=== PATIENT | male | born 1975 | race Caucasian/White ===

== ENCOUNTER 2025-02-02 08:02 | Observation (INO) ==
--- NOTE | 2025-01-02 15:48 | PAT Medication Instructions ---
Medication Instructions Date of Service January 02, 2025 Home Medications Medication Instructions Recorded baclofen 10 mg tablet 10 mg PO TID PRN muscle spasm #30 10/16/24 tabs alprazolam 0.5 mg tablet (Xanax) 0.5 mg PO UD PRN Anxiety calcium carbonate (Tums) 0 mg PO UD PRN Acid Reflux cetirizine 10 mg tablet (Zyrtec) 10 mg PO UD PRN SEASONAL ALLERGIES fluticasone propionate 50 mcg/actuation nasal spray,suspension (Flonase Allergy Relief) 1 spray intranasal UD PRN SEASONAL ALLERGIES acetaminophen 500 mg tablet (Tylenol Extra Strength) 1,000 mg PO UD PRN Pain baclofen 10 mg tablet 10 mg PO TID PRN muscle spasm ibuprofen 200 mg capsule 600 mg PO UD PRN Pain methocarbamol 500 mg tablet 0 mg PO UD PRN muscle spasms ASK your surgeon for instructions ibuprofen 200 mg capsule 600 mg PO UD PRN Pain DO NOT take the morning of surgery calcium carbonate (Tums) 0 mg PO UD PRN Acid Reflux cetirizine 10 mg tablet (Zyrtec) 10 mg PO UD PRN SEASONAL ALLERGIES Take morning of surgery With a small sip of water, OTHERWISE NOTHING TO EAT OR DRINK AFTER MIDNIGHT: alprazolam 0.5 mg tablet (Xanax) 0.5 mg PO UD PRN Anxiety (if needed) fluticasone propionate 50 mcg/actuation nasal spray,suspension (Flonase Allergy Relief) 1 spray intranasal UD PRN SEASONAL ALLERGIES (if needed) acetaminophen 500 mg tablet (Tylenol Extra Strength) 1,000 mg PO UD PRN Pain (if needed) baclofen 10 mg tablet 10 mg PO TID PRN muscle spasm (if needed) methocarbamol 500 mg tablet 0 mg PO UD PRN muscle spasms (if needed) Take evening before surgery alprazolam 0.5 mg tablet (Xanax) 0.5 mg PO UD PRN Anxiety (if needed) calcium carbonate (Tums) 0 mg PO UD PRN Acid Reflux (if needed) cetirizine 10 mg tablet (Zyrtec) 10 mg PO UD PRN SEASONAL ALLERGIES (if needed) fluticasone propionate 50 mcg/actuation nasal spray,suspension (Flonase Allergy Relief) 1 spray intranasal UD PRN SEASONAL ALLERGIES (if needed) acetaminophen 500 mg tablet (Tylenol Extra Strength) 1,000 mg PO UD PRN Pain (if needed) baclofen 10 mg tablet 10 mg PO TID PRN muscle spasm (if needed) methocarbamol 500 mg tablet 0 mg PO UD PRN muscle spasms (if needed) Other Notes If you have any questions please call us at [phone] or [phone] or [phone] or [phone]
--- NOTE | 2025-01-07 09:43 | Anesthesiology Consultation ---
Date of Service January 07, 2025 Assessment & Plan (1) Encounter for pre-operative examination: - awaiting PCP, [facility] Dr. Tim Babin response to optimization form on abnormal CXR. Surgeon's office made aware. Message left requesting patient return call. - upcoming dental appointment for pain-states surgeon is aware. Chart Review Chart Review: Patient seen in Pre Admission Testing Teaching & Discussion Pre-Anesthesia Teaching/Discussion Notes: Instructed NPO after midnight before surgery, except medications with 15 cc of water. Medication instructions provided according to the PAT guidelines. History Surgery Operation Date: 02/02/25 07:00 Proposed Procedures p Right Anterior Total Hip Arthroplasty - Hemant Le, Height/Weight Height: 6 ft Weight: 86.3 kg Allergies Allergy/AdvReac Type Severity Reaction Status Date / Time Penicillins Allergy Unknown PT NOT Verified 01/02/25 15:17 SURE , BEEN TOLD THIS ALL MY LIFE Medications Home Medications Medication Instructions Recorded Confirmed Last Taken alprazolam 0.5 mg tablet (Xanax) 0.5 mg PO UD PRN Anxiety 10/22/20 01/02/25 Unknown calcium carbonate (Tums) 0 mg PO UD PRN Acid Reflux 04/15/21 01/02/25 Unknown cetirizine 10 mg tablet (Zyrtec) 10 mg PO UD PRN SEASONAL ALLERGIES 04/15/21 01/02/25 Unknown fluticasone propionate 50 1 spray intranasal UD PRN SEASONAL 04/15/21 01/02/25 Unknown mcg/actuation nasal ALLERGIES spray,suspension (Flonase Allergy Relief) acetaminophen 500 mg tablet 1,000 mg PO UD PRN Pain 10/16/24 01/02/25 Unknown (Tylenol Extra Strength) baclofen 10 mg tablet 10 mg PO TID PRN muscle spasm #30 10/16/24 01/02/25 Unknown tabs ibuprofen 200 mg capsule 600 mg PO UD PRN Pain 10/16/24 01/02/25 Unknown methocarbamol 500 mg tablet 0 mg PO UD PRN muscle spasms 01/02/25 01/02/25 Unknown Past Medical History Medical History Acid reflux controlled, stable per pt Anxiety Borderline high cholesterol Hip impingement syndrome History of COVID-19 (~2021) approx 2021, no hx hospitalization. Osteoarthritis Sacroiliac joint pain Seasonal allergies Patient denies h/o stroke, seizures, heart attack, heart failure, DM, HTN, blood clots/DVTs or blood transfusions. Exercise / Class Metabolic Activity II 4-5 Yardwork/Stairs/Walk up hill (denies chest discomfort or shortness of breath walking up one flight of stairs) Past Family History Family History Grandfather Family history of diabetes mellitus Other No family history of adverse response to anesthesia Past Surgical History Surgical History History of colonoscopy approx summer 2023 History of endoscopy UPPER GI, SOME ANESTHESIA FOR WITH THIS PROCEDURE TOLD "VEIN COLLAPSED" PT NOT SURE WHAT THIS MEANS OR OTHER DETAILS DONE AT [facility] IN HIS EARLY S History of esophagogastroduodenoscopy (EGD) approx summer 2023 History of prior ablation treatment nerve ablation for back x2 Hx of elbow surgery right [place] teeth removed Past Anesthesia History No Hx of Anesthesia Complications and No Family Hx of Anesthesia Complications History of PONV No Hx of PONV and No Hx of Motion Sickness Social History Smoking Status: Current every day smoker Smoking cigarettes per day: 10 /advised Do You Dip or Chew Tobacco: No Hx Alcohol Use: Yes Alcohol type: beer alcohol intake frequency: holidays/special occasions only Hx Substance Use: No substance use type: does not use Review of Systems Snoring, denies witnessed apneas. Patient denies chest pain, shortness of breath, dyspnea on exertion, fever, chills, cough, wheezing, or palpitations. Physical Exam Vital Signs Vitals BP 109/73 P 76 TEMP 98 SP02 97% on RA RESP 18 Physical Patient resting comfortably in chair in no acute distress, alert and oriented, responding appropriately throughout visit Full cervical extension range of motion without pain TMD 3.5 finger breadths Mallampati Score 2 Dentition: intact, denies chipped or loose teeth, caps/crowns, implants or bridges Lungs: normal respiratory effort. Good air movement, clear throughout to auscultation, no adventitious breath sounds Cardiac: regular rate and rhythm, no murmurs noted Carotid arteries: negative bruit bilat Lab Results Anesthesia Preop Results Results Anesthesia Widget: WBC 10.66 K/ul (4.8-10.8) 01/07/25 Hgb 16.9 g/dl (14.0-18.0) 01/07/25 Hct 49.9 % (42.0-52.0) 01/07/25 Plt 303 K/uL (130-400) 01/07/25 Na 139 mmol/L (136-145) 01/07/25 K 4.4 mmol/L (3.5-5.1) 01/07/25 Cl 107 mmol/L (98-107) 01/07/25 CO2 25 mmol/L (21-32) 01/07/25 BUN 13 mg/dl (6-23) 01/07/25 Creat 0.85 mg/dl (0.6-1.4) 01/07/25 Glucose Level 93 mg/dl (70-99(Fasting)) 01/07/25 PT 10.3 Seconds (9.0-12.0) 01/07/25 PTT 30 Seconds (21-31) 01/07/25 INR 1.0 (0.9-1.1) 01/07/25 Blood Type O Positive 01/07/25 Antibody Screen NEGATIVE 01/07/25 Testing Electrocardiogram Date: 01/07/25 NSR, rate 69 bpm Chest X-Ray Date: 01/07/25 There is a 5 cm right apical bulla. The heart is normal in size. There is no failure. There are no pleural effusions. There is no pneumothorax. Mild degenerative changes are present within the dorsal spine. IMPRESSION: 1. 5 cm right apical bulla 2. No active disease in the chest.
[~2025-02-02 08:02] MED LIST: BUPIVACAINE 0.5 % 5 MG/1 ML PF 10ML VIAL ONE
[2025-02-02] MEDS: LR 500ML BOLUS, THEN 15ML/HR IV SCH (09:02)
[2025-02-02] MEDS ORDERED: MIDAZOLAM HCL 1 MG/ML 2ML VIAL ONE (09:03)
[2025-02-02] MEDS: GABAPENTIN 900 MG DOSE PO SCH (09:03)
[2025-02-02] MEDS: FAMOTIDINE 20 MG TAB PO SCH (09:03)
[2025-02-02] MEDS: ACETAMINOPHEN 500 MG TAB PO SCH ×2 (09:03→17:46)
[2025-02-02] MEDS: dexAMETHasone**PF** 10 MG/ML VIAL IV SCH (09:04)
[2025-02-02] MEDS ORDERED: KETAMINE HCL 10MG/ML SYR ONE (09:04)
[2025-02-02] MEDS: LR 60ML/HR IV SCH (09:04)
[2025-02-02] MEDS ORDERED: PROPOFOL IV EMULSION 10 MG/ML 20 ML VIAL IV ONE ×2 (09:06)
--- NOTE | 2025-02-02 09:57 | History & Physical Bridge Note ---
Date of Service February 02, 2025 History & Physical Bridge Note I have examined the patient, reviewed the History & Physical and in the interval since the performance of the History & Physical I have noted the following changes of clinical significance: no changes noted
[2025-02-02] MEDS ORDERED: ATROPINE SULFATE 0.1 MG/ML 10ML SYR IV PRN (10:00)
[2025-02-02] MEDS ORDERED: ONDANSETRON INJ 2 MG/ML 2 ML VIAL IV PRN ×2 (10:00→13:00)
[2025-02-02] MEDS: TRANEXAMIC ACID 1,000 MG **IV Pre-op IV SCH (10:04)
[2025-02-02] MEDS: ORTHO JOINT ANESTHETIC ONE (10:48)
[2025-02-02] MEDS ORDERED: ONDANSETRON INJ 2 MG/ML 2 ML VIAL ONE (10:55)
[2025-02-02] MEDS: ROPIV 0.5% 246mg, Ketorolac 30mg, EPINEPHrine 0.5mg in NSS INFIL SCH (11:17)
--- NOTE | 2025-02-02 11:19 | Operative Report ---
PG Post Operative Report Pre & Post Diagnosis Operation Date: 02/02/25 10:00 Pre-Op Diagnosis: osteoarthritis of right hip Post-Op Diagnosis: osteoarthritis of right hip I identified the patient and participated in the time-out.: Yes Procedure Operation Date: 02/02/25 10:00 Actual Procedures p Right Anterior Total Hip Arthroplasty(Right) - Hemant Le DO Surgeon Hemant Le DO Radio Producer Syl Arroyo PA-C Estimated Blood Loss 200 Findings Consistent with Post-Op Diagnosis Specimens Right femoral head Description of Procedure Implants used I used a ZimmerBiomet total hip arthroplasty system with a size 3 standard offset Z1 stem, a 50 mm G7 cup, an E1 polyethylene liner, a 36 mm ceramic head with a +3.5 neck. Garrett arrived at the hospital for the above procedure. He was seen in the preoperative holding area and the operative extremity was identified and signed. He was given a spinal anesthetic, a preoperative antibiotic, and TXA. He was then taken back to the operating room and laid on the table in the supine position. He was given basic sedation. The operative leg was secured to a Puristst leg positioner. The hip was then prepped and draped in sterile fashion. A timeout was done and the patient and the operative extremity was properly identified. An anterior approach was used. Dissection was taken down through the fascia and the tensor muscle belly was retracted laterally and the rectus was retracted medially. The circumflex vessels were identified and ligated. The capsule was then incised and tagged for later repair. The femoral neck was then cut and the femoral head was removed. The acetabulum was exposed. Time was spent doing a complete circumferential labral release. Sequential reaming of the acetabulum up to a size 49 reamer was done. Final reamings were done under fluoroscopy to ensure appropriate version. A Biomet 50 mm G7 cup was then impacted into place. The E1 polyethylene liner was then snapped into place. Surrounding soft tissues were then injected with 100 cc of an orthopedic pain control cocktail. The proximal femur was then exposed. Sequential broaching up to a size 3 broach was done. Off that broach a size 36 head with a +3.5 neck was trialed. The hip was reduced and fluoroscopic images showed anatomic alignment of the implants in acceptable length. The broach was removed. The final size 3 standard offset Z1 stem was then impacted into place. A ceramic 36 mm head with a +3.5 neck was then impacted onto the stem and the hip was reduced. Final fluoroscopic images showed anatomic alignment of the hip. The capsule was then closed with #1 Vicryl suture. A dilute betadyne lavage was then done for 3 minutes. The joint was then irrigated with normal saline solution. The fascia was closed with #1 PDS suture. Skin was closed with 2-0 Vicryl, Kam Zipline, and a Silverlon dressing. He was then transferred to a hospital bed and taken to the post anesthesia care unit in stable condition. He tolerated the procedure well. Syl Arroyo PA-C, was present for the entire procedure. He was critical for pa tient positioning, prepping, draping, retraction exposure, wound closure and application of sterile dressing. I attest to the content of the Intraoperative Record and any orders documented therein. Any exceptions are noted below.
--- NOTE | 2025-02-02 12:13 | XRay Report ---
SINGLE VIEW PELVIS; SINGLE VIEW RIGHT HIP CLINICAL HISTORY: Postoperative examination. FINDINGS: An AP portable view of the hips and pelvis with a crosstable lateral portable view of the r ight hip are obtained. Comparison is made to study dated 01/07/2025. A bipolar right hip arthroplasty is in near-anatomic alignment. No acute fracture is identified. There are expected postoperative ch anges overlying the right hip including subcutaneous gas and soft tissue swelling. Phleboliths are se en in the pelvis. IMPRESSION: Expected postoperative findings status post right hip arthroplasty. No acute fracture is seen. ACT 112: Negative or not required by law. Electronically signed by: Antoine Camacho M.D. 02/02/2025 12:12 PM
[2025-02-02] MEDS ORDERED: diphenhydrAMINE Capsule 25 MG CAP PO PRN (13:00)
[2025-02-02] MEDS ORDERED: NALOXONE HCL 0.4 MG/1 ML VIAL/CARP IV PRN (13:00)
[2025-02-02] MEDS ORDERED: METOCLOPRAMIDE HCL INJ 5 MG/ML 2 ML VIAL IV PRN (13:00)
[2025-02-02] MEDS ORDERED: CETIRIZINE HCL 10 MG TABLET PO PRN (13:00)
[2025-02-02] MEDS ORDERED: ACETAMINOPHEN 500 MG TAB PO PRN (13:00)
[2025-02-02] MEDS ORDERED: ALUMINUM/MAGNESIUM SUSP 30 ML UDC PO PRN (13:00)
[2025-02-02] MEDS ORDERED: MAGNESIUM HYDROXIDE SUSP 30 ML UDC PO PRN (13:00)
[2025-02-02] MEDS ORDERED: BACLOFEN 10 MG TAB PO PRN (13:00)
--- NOTE | 2025-02-02 13:09 | Fluoroscopy Report ---
FL hip RT 1V CLINICAL HISTORY: RT ANTERIOR HIP COMPARISON STUDY: None FLUOROSCOPY TIME: 18 seconds FLUOROSCOPY IMAGES: 1 EXPOSURE DOSE: 2.2 mGy FINDINGS: Fluoroscopy was provided for right hip prosthesis. IMPRESSION: Intraoperative fluoroscopy. ACT 112: Negative or not required by law. Electronically signed by: Eduardo Melchor M.D. 02/02/2025 1:07 PM
[2025-02-02] MEDS: SODIUM CHLORIDE 0.9% 1,000 ML IV SCH (13:27)
--- NOTE | 2025-02-02 13:50 | Anesthesiology Progress Note ---
Date of Service February 02, 2025 Anesthesia Post Procedure Vital Signs Vital Signs: Temp Pulse Resp BP BP Pulse Ox O2 Del Method 02/02/25 12:30 69 15 101/71 94 Room Air 02/02/25 12:20 36.4 C L 80 14 111/71 93 Room Air 02/02/25 12:10 69 12 109/76 93 Room Air 02/02/25 12:00 70 16 110/72 95 Room Air 02/02/25 11:50 80 15 121/78 94 Room Air 02/02/25 11:44 36.4 C L 85 12 115/72 93 Room Air 02/02/25 08:19 36.4 C L 88 16 127/84 95 Room Air Notes Mental Status: alert / awake / arousable Patient Amnestic to Procedure: Yes Nausea / Vomiting: adequately controlled Pain: adequately controlled Airway Patency, RR, SpO2: stable & adequate BP & HR: stable & adequate Hydration State: stable & adequate Neuraxial Anesthesia: was administered and sensory block is resolving Anesthetic Complications: no major complications apparent
[2025-02-02] MEDS: KETOROLAC TROMETHAMINE 15 MG/ML VIAL IV SCH (14:04)
[2025-02-02 15:23] VITALS: RESP 18
[2025-02-02] MEDS: SENNA 8.6 MG TAB PO SCH (20:42)
[2025-02-02] MEDS: DOCUSATE SODIUM 100 MG CAP PO SCH (20:42)
[2025-02-02] MEDS: ASPIRIN 81 MG ECTAB PO SCH (20:42)
[2025-02-03] MEDS: COUGH DROP (SUGAR FREE) LOZ 24 LOZ/1 BOX BUCCAL ONE (06:03)
[2025-02-03] MEDS: MULTIVITAMIN TAB PO SCH (08:16)
[2025-02-03] MEDS: NICOTINE 14 MG/24 HR PATCH TD SCH (08:17)
[2025-02-03] MEDS: REMOVE NICODERM PATCH SCH (08:18)
[2025-02-03 08:33] VITALS: BP 110/68; PULSE 65; TEMP 97.9; O2SAT 92
--- NOTE | 2025-02-03 08:47 | Orthopedic Progress Note ---
Date of Service February 03, 2025 Assessment & Plan (1) S/P total right hip arthroplasty: * Continue Current Treatment * Disposition: home * Daily treatment: Physical Therapy/ Occupational Therapy per protocol * Weight bearing status: WBAT, no precautions * Continue to monitor for ABLA * Pain control * DVT prophylaxis, ASA * Office/hospital f/u 2 weeks for progress check and staple/suture removal * Plan for discharge today pending PT/OT clearance Subjective .Active Problems: S/p right ROXANA POD 1 49 y/o male s/p right ROXANA. Doing well overall, pain managed and improved function. Denies fever/chills, chest pain/SOB, nausea/vomiting. Otherwise no complaints. Review of Systems All systems reviewed & are unremarkable except as noted in HPI & below. Physical Exam . * General: Alert and oriented, no acute distress * Constitutional: well-developed, well-nourished. * Respiratory: Normal respiratory effort, no distress * Gastrointestinal: No tenderness to palpation, no rigidity or guarding. * Skin: No rash or lesion. * Neurologic: Grossly normal * Musculoskeletal: Right hip surgical dressing CDI, not removed for exam. Otherwise no obvious deformity or overlying skin changes. Diffuse TTP proximal thigh and hip region. Otherwise no specific tenderness of distal thigh, lower leg, foot/ankle. AROM hip flexion intact. AROM foot/ankle intact. Sensation intact plantar/dorsal foot. Brisk capillary refill. Results & Data Results & Data Laboratory Results . Diagnostic Findings . Hip X-Ray 02/02/25 00:00 FL hip RT 1V CLINICAL HISTORY: RT ANTERIOR HIP COMPARISON STUDY: None FLUOROSCOPY TIME: 18 seconds FLUOROSCOPY IMAGES: 1 EXPOSURE DOSE: 2.2 mGy FINDINGS: Fluoroscopy was provided for right hip prosthesis. IMPRESSION: Intraoperative fluoroscopy. ACT 112: Negative or not required by law. Electronically signed by: Eduardo Melchor M.D. 02/02/2025 1:07 PM Hip/Pelvis X-Ray 02/02/25 11:47 SINGLE VIEW PELVIS; SINGLE VIEW RIGHT HIP CLINICAL HISTORY: Postoperative examination. FINDINGS: An AP portable view of the hips and pelvis with a crosstable lateral portable view of the right hip are obtained. Comparison is made to study dated 01/07/2025. A bipolar right hip arthroplasty is in near-anatomic alignment. No acute fracture is identified. There are expected postoperative changes overlying the right hip including subcutaneous gas and soft tissue swelling. Phleboliths are seen in the pelvis. IMPRESSION: Expected postoperative findings status post right hip arthroplasty. No acute fracture is seen. ACT 112: Negative or not required by law. Electronically signed by: Antoine Camacho M.D. 02/02/2025 12:12 PM PG Care Time/CCT Total # of Minutes Spent Total Time Spent with Patient: Total time spent is greater than 50% in coordination of care (as documented) at patient's floor/unit and/or counseling patient: Coding Level of Care Code 50115 Post Operative Follow-Up Diagnoses S/P total right hip arthroplasty Z96.641
== END 2025-02-03 11:34 | disposition home or self-care (01) ==
LOC: ASU 08:02 → 3E 08:02